=== PATIENT | female | born 1945 | race Caucasian/White ===

== ENCOUNTER 2022-05-15 20:08 | Emergency (ER) | payer SELFPAY | END 2022-05-15 20:36 | disposition home or self-care (01) | LOC: DL.ED 20:08 → MERGE 20:08 → DL.ED 20:36 | DX: Z04.1 Encounter for examination and observation following transport accident (principal); I10 Essential (primary) hypertension; V87.7XXA Person injured in collision between other specified motor vehicles (traffic), initial encounter; Y92.410 Unspecified street and highway as the place of occurrence of the external cause | CPT/HCPCS: 99282; 99283 ==